=== PATIENT | female | born 1955 | race Caucasian/White ===

== ENCOUNTER 2016-03-29 17:55 | Inpatient (IN) | payer OTHER ==
[~2016-03-29] VITALS: Ht 162.6 cm; Wt 92.1 kg
--- NOTE | 2016-03-29 20:49 | DIAGNOSTIC IMAGING REPORT ---
PROCEDURE: CT SINUS/FACIAL BONES W/CONT CLINICAL INDICATION: Right auricular pain and swelling. Cellulitis. TECHNIQUE: of Isovue 300 injected intravenously and axial images were obtained through the face with coronal reformations. COMPARISON: None. FINDINGS: There is moderate to marked inflammatory changes and swelling of the right external ear and lateral external auditory canal. This is associated moderate right cervical adenopathy. There is no evidence of fluid collection or abscess. Right temporal bones and mastoids are normal (mildly under aerated). Right middle and inner ear appear normal. Sinuses appear normal. Portions of the orbits are seen, and are normal. There are moderate degenerative change of the cervical spine with fusion of the C5-6 level. IMPRESSION: 1. Moderate to marked inflammatory changes of the right external ear and lateral external auditory canal. Findings are compatible with cellulitis. No evidence of fluid collection or abscess, and no evidence of temporal bone involvement. 2. Associated moderate right upper cervical adenopathy. 3. Findings discussed with Dr. Mark Sneed. All CT scans at this facility use dose modulation, iterative reconstruction, and/or weight-based dosing when appropriate to reduce radiation dose to as low as reasonably achievable.
--- NOTE | 2016-03-29 21:01 | ED CLINICAL REPORT ---
Clinical Report - Physicians/Mid Levels [facility] [address] [place] [address] 03/29/2016 17:57 Patient: MARY TERRELL Arrived- By private vehicle. Historian- patient. HISTORY OF PRESENT ILLNESS Chief Complaint: SKIN RASH. This started denies several days and is still present and worsening. It was abrupt in onset and has been constant but is not gone now. It is described as painful. It has been located on the face (right Ear). No cause has been identified. No recent medication or food exposure. Was not recently exposed to poison krystal or poison oak. Similar symptoms previously: Once. Recent medical care: Not recently seen/assessed. REVIEW OF SYSTEMS No headache or abdominal pain. All systems otherwise negative, except as recorded above. PAST HISTORY See nurses notes. Tetanus immunization status is up-to-date. Medications: Hydrochlorothiazide Oral. Atenolol Oral. Allergies: No Known Drug Allergy. ADDITIONAL NOTES The nursing notes have been reviewed. PHYSICAL EXAM Vital Signs: 03/29/2016 18:28 BP: 165/62. HR: 87. RR: 16. O2 saturation: 98%. Temp: 101 F. Pain level now: 9/10. Hypertensive. Oxygen saturation normal. Appearance: Alert. Oriented X3. No acute distress. Eyes: Pupils equal, round and reactive to light. Conjunctivae and eyelids normal. ENT: Ears normal. Nose normal. Neck: Neck supple. CVS: Normal heart rate and rhythm. Heart sounds normal. Respiratory: No respiratory distress. Breath sounds normal. Abdomen: Nontender. No organomegaly. Skin: (cellulitic area over the rightexternal auricle and mastoid process that extends over to the cheek as well. Area is warm to touch. No crepitus. No masses. Moderate swelling associated to the external auricle. No signs of abscess. Skin is intact. Patient has proportionate tenderness over the areas of cellulitis.). Extremities: Normal external inspection. Extremities nontender. LABS, X-RAYS, AND EKG Laboratory Tests: CBC w Diff: (AYAD: 03/29/2016 19:12) ( MsgRcvd 03/29/2016 19:34) Final results Test Result Flag Units (Reference) WHITE BLOOD COUNT 12.7 H K/uL (4.5-11.5) RED BLOOD COUNT 4.60 M/uL (4.00-5.20) HEMOGLOBIN 12.2 gm/dL (12.0-16.0) HEMATOCRIT 37.6 % (36.0-46.0) MEAN CELL VOLUME 82 fL (80-100) MEAN CORPUSCULAR HGB 27 pg (26-34) MEAN CORPUSCULAR HGB CONC 33 g/dL (31-37) RED CELL DISTRIBUTION WIDTH 16.7 H % (11.6-14.8) PLATELET COUNT 194 K/uL (150-400) NEUTROPHIL % 80.0 H % (50-75) LYMPH % 11.1 L % (25-40) MONO % 8.7 % (3-14) EOSINOPHIL % 0 % (0-4) BASOPHIL % 0.2 % (0-2) Lactate, Serum: (AYAD: 03/29/2016 19:12) ( MsgRcvd 03/29/2016 19:54) Final results Test Result Flag Units (Reference) LACTIC ACID 1.3 mmol/L (0.4-2.0) . PROGRESS AND PROCEDURES Course of Care: The patient is a pleasant 60-year-old female presents for evaluation of cellulitis to the face. Patient is tender over the mastoid process. CT scan of the face will be ordered for evaluation of mastoids. Patient is afebrile here in the emergency department. Patient will need antibiotics however at this time we aredoing eating if the infection has gone down to the mastoids. Patient is nontoxic and is in no acute distress. Pain medication and laboratory studies also ordered for evaluation of patient's current condition. Patient is currently agreeable to the treatment plan. Was informed by nursing staff that patient did not want morphine for pain relief. Patient reports that she would rather have Tylenol or ibuprofen. Tylenol 650 was ordered. Workup is currently pending at this time. patient's CBC is back with a mild elevation in her white count. White count is 2.7. No other acute abnormalities noted. The rest of the patient's workup is currently pending. work up shows patient to have no infection going down to the bone on CT scan. Had discussion with patient about admission to the hospital. Patient is agreeable. Due to the area of cellulitis and cosmetic outcome, would have patient admitted for IV abx. Discussed case with hospitalist who will accept the patient. No further recommendations. Agreed with vanco and ceftriaxone. patient does not need ICU level of care at this time. no signs of sepsis. patient is non-toxic in appearance. Critical care performed (35 minutes). Time is exclusive of separately billable procedures. Time includes: direct patient care, patient reassessment, coordination of patient care, interpretation of data (laboratory data), review of patient's medical records, medical consultation and documentation of patient care. Disposition: Admitted to Acute Care. CLINICAL IMPRESSION acute right sided facial cellulitis, significant. (Electronically signed by Mark Sneed Dr. 04/01/2016 22:41)
--- NOTE | 2016-03-29 21:02 | ED ORDER SUMMARY ---
..... Patient: MARY TERRELL OrderSheet [facility] VisitID: [id number] [place] [address] 60y, F Registration Date/Time: 03/29/2016 ORDER SHEET Weight: 90.7 kg (stated) Allergies: No Known Drug Allergy GENERAL ORDERS: CT Sinus/Facial Bones w Cont Urgent (18:53 03/29/2016 Allen Sandhu) (Ack 19:07 NHouse ER Tech1) (Cancelled: Duplicate Order19:51 Allen Sandhu) CBC w Diff Urgent (18:53 03/29/2016 Allen Sandhu) (Ack 19:07 NHouse ER Tech1) (20:16 NHouse ER Tech1) CMP Urgent (18:53 03/29/2016 Allen Sandhu) (Ack 19:07 NHouse ER Tech1) (20:16 NHouse ER Tech1) Lactate, Serum Urgent (18:53 03/29/2016 Allen Sandhu) (Ack 19:07 NHouse ER Tech1) (20:16 NHouse ER Tech1) PCT (Procalcitonin) Urgent (18:53 03/29/2016 Allen Sandhu) (Ack 19:07 NHouse ER Tech1) (20:16 NHouse ER Tech1) Pulse oximeter (18:53 03/29/2016 Allen Sandhu) (18:56 MWinterer R.N.) CT IAC/PF/Orbit w Cont Urgent (19:50 03/29/2016 Allen Sandhu) (Ack 20:06 NHouse ER Tech1) (Cancelled: Wrong Order20:14 NHouse ER Tech1) CT Sinus/Facial Bones w Cont Urgent (20:13 03/29/2016 NHouse ER Tech1 verbal order read back to Allen Sandhu) (20:14 NHouse ER Tech1) Blood Culture (No) (N/A) Urgent (21:06 03/29/2016 DBeyer R.NKelvin verbal order read back to Allen Sandhu) (21:22 NHouse ER Tech1) MEDICATION ORDERS: Acetaminophen PO 650 mg (NOW) (19:29 03/29/2016 DBeyer R.N. verbal order read back to Allen Sandhu) (19:32 DBeycookie R.N.) Potassium Chloride PO 60 meq (NOW) (20:05 03/29/2016 Allen Sandhu) (20:25 DBdavid R.N.) IV FLUIDS: Morphine IV 4 mg (HIGH ALERT MEDICATION, NOW) (18:52 03/29/2016 Allen Sandhu) (Ack 18:55 MWinterer R.N.) IV Saline Lock (18:53 03/29/2016 Allen Sandhu) (Ack 18:55 MWinterer R.NKelvin) (19:19 DBeycookie R.N.) Vancomycin IV 1 gm/200mL (NOW) (21:01 03/29/2016 Allen Sandhu) (21:42 DBeyer R.N.) Ceftriaxone IV 1 gm/50mL (NOW) (21:01 03/29/2016 Allen Sandhu) (21:17 DBeyer R.N.) ORDER SHEET NOTES: [Electronically signed by Gene Leyva R.N. (22:33 03/29/2016)] [Electronically signed by Mark Sneed Dr. (22:41 04/01/2016)] [Electronically locked/signed by Gene Leyva R.N. (22:33 03/29/2016)]
--- NOTE | 2016-03-29 21:02 | ED NURSING NOTES ---
Clinical Report - Nurs[facility] [place] [address] 03/29/2016 17:57 Patient: MARY TERRELL TRIAGE Acuity: LEVEL 3. Chief Complaint: RIGHT EAR PAIN and REDNESS TO RIGHT EAR (swollen). Alert. No acute distress. SEPSIS SCREEN: Sepsis Screen. Negative (no infection suspected/documented). --18:32 Cecelia Lindsey R.N. 18:28 03/29/16. BP: 165/62. HR: 87. RR: 16. O2 saturation: 98% on room air. Temp: 101 F (oral). Pain level now: 12/06. --18:32 Cecelia Lindsey R.N. Weight: 90.7 kg stated. Height/Length: 64 inches Per Patient. BMI: 34.3. --18:31 Cecelia Lindsey R.N. Medications Atenolol Oral. --18:29 Cecelia Lindsey R.N. Hydrochlorothiazide Oral. --18:29 Cecelia Lindsey R.N. Medication/allergy information source: the patient. --18:32 Cecelia Lindsey R.N. Allergies No Known Drug Allergy. --18:29 Cecelia Lindsey R.N. History Arrived by private vehicle. Historian: patient. Accompanied by spouse. Primary physician (Lizette). This started yesterday. PAST MEDICAL HX: The patient is post-menopausal. SOCIAL HX: Never smoker. No alcohol use or drug use. FALL RISK ASSESSMENT: Fall risk assessment completed. No fall risk identified. NUTRITIONAL RISK ASSESSMENT: The nutritional risk assessment revealed no deficiencies. FUNCTIONAL ASSESSMENT: Functional assessment: no impairments noted. LEARNING NEEDS ASSESSMENT: The learning needs assessment revealed no barriers. SKIN INTEGRITY ASSESSMENT: Skin integrity risk assessment completed. No skin integrity risk identified. --18:32 Cecelia Lindsey R.N. PROBLEMS: Hypertension. --18:30 Cecelia Lindsey R.N. Assessment GENERAL / NEURO / PSYCH: Alert. Oriented X 4. Appears in no acute distress. Patient appears calm and cooperative. RESPIRATORY: Respirations not labored. CVS: Capillary refill less than 2 seconds. GI / : Abdomen soft and nontender. SKIN: Mucous membranes are pink. Skin is warm and dry. --18:32 Cecelia Lindsey R.N. Interventions ID band on patient. To treatment room. --18:32 Cecelia Lindsey R.N. NURSING PROGRESS NOTES 18:32 03/29/16. Two patient identifiers checked. Call light placed in reach. Side rails up x 1. Bed placed in lowest position. Brakes of bed on. Patient ready for evaluation- chart flagged and ED physician and SOLE ROUNDING MACHINE OPERATOR notified. --18:32 Cecelia Lindsey R.N. 19:05 03/29/16. Care transferred and report given (Gene, RN). --19:05 Cecelia Lindsey R.N. 19:14 03/29/2016 Morphine IV 4 mg (HIGH ALERT MEDICATION, NOW) was refused by patient because of Pt would rather not have morphine. Gene Leyva --19:19 Gene Leyva R.N. 19:19 03/29/2016 Site #1 started via IV in the left antecubital space with an 20g angiocath, with aseptic technique and good blood return; one attempt. Blood drawn: rainbow set and cultures x1. Saline lock flushed with saline. --19:19 Gene Leyva R.N. 19:32 03/29/2016 Acetaminophen (APAP) PO 650 mg given. Allergies verified and confirmed 5 rights. --19:32 Gene Leyva R.N. ( pt resting in bed call light within reach denies needs at this time.). --19:38 Gene Leyva R.N. Critical value relayed to ED by Ney. Critical value received by polina Larkin: 2.8. Critical value read back. Verified lab result and patient ID. ED physician notifed of critical value. --20:05 Polina Bhandari 20:25 03/29/2016 Potassium Chloride (Potassium Chloride ER) PO 60 meq given. Allergies verified and confirmed 5 rights. --20:25 Gene Leyva R.N. 21:03/29/16. BP: 135/60. HR: 78. RR: 18. O2 saturation: 98%. Temp: 97.4 F. --21:01 Gene Leyva R.N. 21:14 03/29/2016 Started 1 gm of Ceftriaxone IVPB in bag #1 50 mL; at 150 mL/hr over 20 minute(s) via site #1 via IV pump. Allergies verified and confirmed 5 rights. IV patency established. IV site checked: no pain, redness, or swelling. IV flushed thoroughly pre- and post-medication administration. --21:17 Gene Leyva R.N. 21:37 03/29/2016 Ceftriaxone IVPB Discontinued: bag #1 completed upon admission. Total amount infused: 50 mL. IV patency established. IV site checked: no pain, redness, or swelling. IV flushed thoroughly. --21:37 Gene Leyva R.N. 21:42 03/29/2016 Started 1 gm of Vancomycin IVPB in bag #1 250 mL; at 250 mL/hr over 1 hour(s) via site #1 via IV pump. Allergies verified and confirmed 5 rights. IV patency established. IV site checked: no pain, redness, or swelling. IV flushed thoroughly pre- and post-medication administration. --21:42 Gene Leyva R.N. DISPOSITION / DISCHARGE 21:30 03/29/16. Report was given to a nurse in person. Report included patient's care, treatment, medications, reviewed medication reconcilliation, and condition (including any recent changes or anticipated changes). All questions were answered. Report was acknowledged. (report to [facility]). --21:30 Gene Leyva R.N. 21:32 03/29/16. BP: 131/61. HR: 77. RR: 18. O2 saturation: 96%. Temp: 97.8 F. Pain level now 07/06. --21:32 Gene Leyva R.N. Locked/Released at 03/29/2016 22:33 by Gene Leyva R.N.
--- NOTE | 2016-03-29 21:02 | ED NURSING NOTES ---
Clinical Report - Nurses [facility] [place] [address] 03/29/2016 17:57 Patient: MARY TERRELL TRIAGE Acuity: LEVEL 3. Chief Complaint: RIGHT EAR PAIN and REDNESS TO RIGHT EAR (swollen). Alert. No acute distress. SEPSIS SCREEN: Sepsis Screen. Negative (no infection suspected/documented). --18:32 Cecelia Lindsey R.N. 18:28 03/29/16. BP: 165/62. HR: 87. RR: 16. O2 saturation: 98% on room air. Temp: 101 F (oral). Pain level now: 12/06. --18:32 Cecelia Lindsey R.N. Weight: 90.7 kg stated. Height/Length: 64 inches Per Patient. BMI: 34.3. --18:31 Cecelia Lindsey R.N. Medications Atenolol Oral. --18:29 Cecelia Lindsey R.N. Hydrochlorothiazide Oral. --18:29 Cecelia Lindsey R.N. Medication/allergy information source: the patient. --18:32 Cecelia Lindsey R.N. Allergies No Known Drug Allergy. --18:29 Cecelia Lindsey R.N. History Arrived by private vehicle. Historian: patient. Accompanied by spouse. Primary physician (Lizette). This started yesterday. PAST MEDICAL HX: The patient is post-menopausal. SOCIAL HX: Never smoker. No alcohol use or drug use. FALL RISK ASSESSMENT: Fall risk assessment completed. No fall risk identified. NUTRITIONAL RISK ASSESSMENT: The nutritional risk assessment revealed no deficiencies. FUNCTIONAL ASSESSMENT: Functional assessment: no impairments noted. LEARNING NEEDS ASSESSMENT: The learning needs assessment revealed no barriers. SKIN INTEGRITY ASSESSMENT: Skin integrity risk assessment completed. No skin integrity risk identified. --18:32 Cecelia Lindsey R.N. PROBLEMS: Hypertension. --18:30 Cecelia Lindsey R.N. Assessment GENERAL / NEURO / PSYCH: Alert. Oriented X 4. Appears in no acute distress. Patient appears calm and cooperative. RESPIRATORY: Respirations not labored. CVS: Capillary refill less than 2 seconds. GI / : Abdomen soft and nontender. SKIN: Mucous membranes are pink. Skin is warm and dry. --18:32 Cecelia Lindsey R.N. Interventions ID band on patient. To treatment room. --18:32 Cecelia Lindsey R.N. NURSING PROGRESS NOTES 18:32 03/29/16. Two patient identifiers checked. Call light placed in reach. Side rails up x 1. Bed placed in lowest position. Brakes of bed on. Patient ready for evaluation- chart flagged and ED physician and TIMBER MANAGEMENT TECHNICIAN notified. --18:32 Cecelia Lindsey R.N. 19:05 03/29/16. Care transferred and report given (Gene, RN). --19:05 Cecelia Lindsey R.N. 19:14 03/29/2016 Morphine IV 4 mg (HIGH ALERT MEDICATION, NOW) was refused by patient because of Pt would rather not have morphine. Gene Leyva --19:19 Gene Leyva R.N. 19:19 03/29/2016 Site #1 started via IV in the left antecubital space with an 20g angiocath, with aseptic technique and good blood return; one attempt. Blood drawn: rainbow set and cultures x1. Saline lock flushed with saline. --19:19 Gene Leyva R.N. 19:32 03/29/2016 Acetaminophen (APAP) PO 650 mg given. Allergies verified and confirmed 5 rights. --19:32 Gene Leyva R.N. ( pt resting in bed call light within reach denies needs at this time.). --19:38 Gene Leyva R.N. Critical value relayed to ED by Ney. Critical value received by polina Larkin: 2.8. Critical value read back. Verified lab result and patient ID. ED physician notifed of critical value. --20:05 Polina Bhandari 20:25 03/29/2016 Potassium Chloride (Potassium Chloride ER) PO 60 meq given. Allergies verified and confirmed 5 rights. --20:25 Gene Leyva R.N. 21:03/29/16. BP: 135/60. HR: 78. RR: 18. O2 saturation: 98%. Temp: 97.4 F. --21:01 Gene Leyva R.N. 21:14 03/29/2016 Started 1 gm of Ceftriaxone IVPB in bag #1 50 mL; at 150 mL/hr over 20 minute(s) via site #1 via IV pump. Allergies verified and confirmed 5 rights. IV patency established. IV site checked: no pain, redness, or swelling. IV flushed thoroughly pre- and post-medication administration. --21:17 Gene Leyva R.N. 21:37 03/29/2016 Ceftriaxone IVPB Discontinued: bag #1 completed upon admission. Total amount infused: 50 mL. IV patency established. IV site checked: no pain, redness, or swelling. IV flushed thoroughly. --21:37 Gene Leyva R.N. 21:42 03/29/2016 Started 1 gm of Vancomycin IVPB in bag #1 250 mL; at 250 mL/hr over 1 hour(s) via site #1 via IV pump. Allergies verified and confirmed 5 rights. IV patency established. IV site checked: no pain, redness, or swelling. IV flushed thoroughly pre- and post-medication administration. --21:42 Gene Leyva R.N. DISPOSITION / DISCHARGE 21:30 03/29/16. Report was given to a nurse in person. Report included patient's care, treatment, medications, reviewed medication reconcilliation, and condition (including any recent changes or anticipated changes). All questions were answered. Report was acknowledged. (report to [facility]). --21:30 Gene Leyva R.N. 21:32 03/29/16. BP: 131/61. HR: 77. RR: 18. O2 saturation: 96%. Temp: 97.8 F. Pain level now 07/06. --21:32 Gene Leyva R.N. Locked/Released at 03/29/2016 22:33 by Gene Leyva R.N.
--- NOTE | 2016-03-29 21:02 | ED ORDER SUMMARY ---
..... Patient: MARY TERRELL OrderSheet [facility] VisitID: [id number] [place] [address] 60y, F Registration Date/Time: 03/29/2016 ORDER SHEET Weight: 90.7 kg (stated) Allergies: No Known Drug Allergy GENERAL ORDERS: CT Sinus/Facial Bones w Cont Urgent (18:53 03/29/2016 Allen Sandhu) (Ack 19:07 NHouse ER Tech1) (Cancelled: Duplicate Order19:51 Allen Sandhu) CBC w Diff Urgent (18:53 03/29/2016 Allen Sandhu) (Ack 19:07 NHouse ER Tech1) (20:16 NHouse ER Tech1) CMP Urgent (18:53 03/29/2016 Allen Sandhu) (Ack 19:07 NHouse ER Tech1) (20:16 NHouse ER Tech1) Lactate, Serum Urgent (18:53 03/29/2016 Allen Sandhu) (Ack 19:07 NHouse ER Tech1) (20:16 NHouse ER Tech1) PCT (Procalcitonin) Urgent (18:53 03/29/2016 Allen Sandhu) (Ack 19:07 NHouse ER Tech1) (20:16 NHouse ER Tech1) Pulse oximeter (18:53 03/29/2016 Allen Sandhu) (18:56 MWinterer R.N.) CT IAC/PF/Orbit w Cont Urgent (19:50 03/29/2016 Allen Sandhu) (Ack 20:06 NHouse ER Tech1) (Cancelled: Wrong Order20:14 NHouse ER Tech1) CT Sinus/Facial Bones w Cont Urgent (20:13 03/29/2016 NHouse ER Tech1 verbal order read back to Allen Sandhu) (20:14 NHouse ER Tech1) Blood Culture (No) (N/A) Urgent (21:06 03/29/2016 DBeyer R.NKelvin verbal order read back to Allen Sandhu) (21:22 NHouse ER Tech1) MEDICATION ORDERS: Acetaminophen PO 650 mg (NOW) (19:29 03/29/2016 DBeyer R.N. verbal order read back to Allen Sandhu) (19:32 DBeycookie R.N.) Potassium Chloride PO 60 meq (NOW) (20:05 03/29/2016 Allen Sandhu) (20:25 DBdavid R.N.) IV FLUIDS: Morphine IV 4 mg (HIGH ALERT MEDICATION, NOW) (18:52 03/29/2016 Allen Sandhu) (Ack 18:55 MWinterer R.N.) IV Saline Lock (18:53 03/29/2016 Allen Sandhu) (Ack 18:55 MWinterer R.NKelvin) (19:19 DBeycookie R.N.) Vancomycin IV 1 gm/200mL (NOW) (21:01 03/29/2016 Allen Sandhu) (21:42 DBeyer R.N.) Ceftriaxone IV 1 gm/50mL (NOW) (21:01 03/29/2016 Allen Sandhu) (21:17 DBeyer R.N.) ORDER SHEET NOTES: [Electronically signed by Gene Leyva R.N. (22:33 03/29/2016)] [Electronically signed by Mark Sneed Dr. (22:41 04/01/2016)] [Electronically locked/signed by Gene Leyva R.N. (22:33 03/29/2016)]
--- NOTE | 2016-03-29 21:24 | History & Physical Report ---
Admission Admit Date 03/29/16 History Chief Complaint Right Ear Pain and Swelling History of Present Illness Patient is a 60 year old female with a past medical history of Essential Hypertension. She presents to the ER at [facility] complaining of a 1 day hx of right ear pain and swelling. Pt states she noticed yesterday her right ear was very warm and painful to touch. It became significantly swollen. She reports the erythema then seemed to start spreading onto her right cheek. She complains of associated fever and chills. Pt denies any headache, nausea, vomiting, visual changes, or pain with eye movement. She states she has had facial cellulitis once before. Pt has no other complaints or concerns at this time. Patient History 1. Essential hypertension Social History Pt denies any hx of tobacco, alcohol, and illicit drug use. Family History Family history was reviewed; no changes noted. Medications and Allergies Medications Current Medications Sig/Amy Start time Last Medication Dose Route Stop Time Status Admin Ceftriaxone Sodium/ 50 ML DAILY 03/30 0900 UNV Dextrose IV Acetaminophen 650 MG Q6H PRN 03/29 2114 UNV PO Docusate Sodium 250 MG BID PRN 03/29 2114 UNV PO Morphine Sulfate See Dose Q4H PRN 03/29 2114 UNi Insts (1) IV Morphine Sulfate 1 MG Q6H PRN 03/29 2114 UNV IV Naloxone HCl 0.4 MG PRN PRN 03/29 2114 UNV IV Ondansetron HCl 4 MG Q8H PRN 03/29 2114 UNV IV Ondansetron HCl 4 MG Q6H PRN 03/29 2114 UNV IV Vancomycin HCl/ 200 ML .[PER PHARMACY] 03/29 2114 UNV Dextrose IV Zolpidem Tartrate 5 MG QHS PRN 03/29 2114 UNV PO Dose Instructions: (1)Morphine Sulfate: 2 - 4 MG Home Medications: 1. Atenolol, dose unknown 2. Hydrochlorothiazide, dose unknown Allergies Coded Allergies: No Known Drug Allergy (11/11/01) Uncoded Allergies: Food Allergies: NKA Med Allergies: NKA Review of Systems Other All systems reviewed and are negative except for what has already been mentioned in the HPI. Physical Exam Vital Signs / I&Os Temp: 101.3 F HR: 90 BP: 136/52 RR: 18 SpO2: 97% on room air Other GENERAL: NAD; Pt laying comfortably in bed HEENT: AT/NC; PERRLA, EOMI; MM Moist NECK: Supple; No cervical LAD appreciated CARDIAC: RRR, No M/R/G appreciated PULM: Clear to auscultation bilaterally ABD: Soft, NT, ND, Positive BS in all quadrants; No hepatosplenomegaly appreciated EXT: No C/C/E in bilateral upper and lower extremity; No calve tenderness bilaterally SKIN: Pt has erythema and swelling of the right auricle and spreading over the right side of her face, there is tenderness to palpation with overlying calor present NEURO: Alert and oriented x3; Following all commands PSYCH: Normal mood and affect LAB Results Laboratory Tests 03/29 Chemistry Plasma Sodium (136 - 145 mmol/L) 132 Plasma Potassium (3.5 - 5.1 mmol/L) 2.8 Plasma Chloride (98 - 107 mmol/L) 96 CO2 (Enzymatic) (21 - 32 mmol/L) 29 BUN (7 - 18 mg/dL) 11 Creatinine (0.6 - 1.3 mg/dL) 0.8 Est GFR ( Amer) (mL/min) >60 Est GFR (Non-Af Amer) (mL/min) >60 Glucose (70 - 110 mg/dL) 104 Lactic Acid (0.4 - 2.0 mmol/L) 1.3 Plasma Calcium (8.5 - 10.1 mg/dL) 9.0 Plasma Magnesium (1.8 - 2.4 mg/dL) 1.4 Total Bilirubin (0.0 - 1.0 mg/dL) 0.5 AST (15 - 37 U/L) 17 ALT (12 - 78 U/L) 28 Alkaline Phosphatase (46 - 116 U/L) 66 Total Protein (6.4 - 8.2 g/dL) 7.9 Albumin (3.3 - 5.0 g/dL) 3.6 Procalcitonin (0 - 0.5 ng/mL) <0.5 Hematology WBC (4.5 - 11.5 K/uL) 12.7 RBC (4.00 - 5.20 M/uL) 4.60 Hgb (12.0 - 16.0 gm/dL) 12.2 Hct (36.0 - 46.0 %) 37.6 MCV (80 - 100 fL) 82 MCH (26 - 34 pg) 27 RDW (11.6 - 14.8 %) 16.7 Neut % (Auto) (50 - 75 %) 80.0 Lymph % (Auto) (25 - 40 %) 11.1 [place] % (Auto) (3 - 14 %) 8.7 Eos % (Auto) (0 - 4 %) 0 Baso % (Auto) (0 - 2 %) 0.2 Plt Count, EDTA (150 - 400 K/uL) 194 PUBS MCHC (31 - 37 g/dL) 33 Microbiology Date/Time Procedure - Status Source Growth 03/29 2105 Blood Culture - ORD BLOOD 03/29 UNK MRSA Screen - ORD NASAL Imaging CT SINUS/FACIAL BONES W/CONT CLINICAL INDICATION: Right auricular pain and swelling. Cellulitis. TECHNIQUE: of Isovue 300 injected intravenously and axial images were obtained through the face with coronal reformations. COMPARISON: None. FINDINGS: There is moderate to marked inflammatory changes and swelling of the right external ear and lateral external auditory canal. This is associated moderate right cervical adenopathy. There is no evidence of fluid collection or abscess. Right temporal bones and mastoids are normal (mildly under aerated). Right middle and inner ear appear normal. Sinuses appear normal. Portions of the orbits are seen, and are normal. There are moderate degenerative change of the cervical spine with fusion of the C5-6 level. IMPRESSION: 1. Moderate to marked inflammatory changes of the right external ear and lateral external auditory canal. Findings are compatible with cellulitis. No evidence of fluid collection or abscess, and no evidence of temporal bone involvement. 2. Associated moderate right upper cervical adenopathy. 3. Findings discussed with Dr. Mark Sneed. Assessment and Plan Problem List 1. Facial cellulitis Plan - Admit as inpatient to Acute Care, as pts length of stay is expected to be greater than 2 midnights - Start IV Vancomycin, Pharmacy to dose - Start IV Rocephin 2 grams daily - Blood culture now - MRSA screen - Check Procalcitonin and CRP now - Repeat CBC with diff in AM - PO Acetaminophen PRN for fever - IV Morphine PRN for pain 2. Hypokalemia Plan - KCl given in ER - Repeat BMP in AM, if pt remains hypokalemic then would replace with IV KCl again - Telemetry monitoring - Her hypokalemia is likely related to her HCTZ 3. Essential hypertension Plan - Well controlled - Resume home Atenolol - Hold HCTZ for now given hypokalemia
[2016-03-29 21:51] VITALS: BP 130/62
[2016-03-29] MEDS ORDERED: HYDROCHLOROTHIA25 MG PO (22:15)
[2016-03-29] MEDS ORDERED: ATENOLOL25 MG PO (22:15)
[2016-03-30 02:02] VITALS: BP 113/41
[2016-03-30 07:14] VITALS: BP 128/48
[2016-03-30 11:03] VITALS: BP 131/60
--- NOTE | 2016-03-30 12:31 | Progress Note ---
Subjective General Taking po well. No chest pain, SOB, cough, nausea, vomitting, diarrhea, constipation or abdominal pain. Per patient, swelling and redness unchanged. Physical Exam Vital Signs / I&Os Vital Signs Date Time Temp Pulse Resp B/P Pulse O2 O2 Flow FiO2 Ox Delivery Rate 03/30 1103 36.7 78 16 131/60 97 Room Air 03/30 0714 37.3 84 16 128/48 98 Room Air 03/30 0202 36.5 73 20 113/41 97 Room Air 03/29 2220 Room Air 03/29 2151 36.6 76 16 130/62 97 Room Air I&O 03/30 0000 03/29 1600 03/29 0800 Intake Total Output Total Balance General Appearance Alert, Oriented X3, Cooperative, No acute distress Lungs Clear to auscultation, Normal air movement Cardiovascular Regular rate and rhythm, Normal S1 and S2, No murmurs, gallops, rubs Abdomen Normal bowel sounds, Soft, No tenderness Extremities No edema Skin Erythema and edema around R ear is unchanged. Assessment and Plan Problem List 1. Facial cellulitis Plan Severe. will continue IV abx x 24-48 hrs more. Will likely plan to discharge home on bactrim. 2. Hypokalemia Plan Replaced. 3. Hypomagnesemia Plan Replacing. Recheck in am. 4. Prediabetes Plan On consistent carb diet. HgbA1C 6.0 02/2016 5. Dyslipidemia Plan Restarted statin today. 6. Essential hypertension Plan Bp's are nl. Will monitor.
[2016-03-30 14:59] VITALS: BP 126/60
[2016-03-30 18:42] VITALS: BP 127/57
[2016-03-30 22:42] VITALS: BP 132/65
[2016-03-31 02:17] VITALS: BP 122/65
[2016-03-31 07:18] VITALS: BP 136/58
[2016-03-31 11:07] VITALS: BP 123/64
[2016-03-31 14:54] VITALS: BP 129/58
[2016-03-31 18:52] VITALS: BP 133/62
[2016-03-31 22:29] VITALS: BP 124/54
[2016-04-01 00:27] VITALS: BP 132/76
--- NOTE | 2016-04-01 00:47 | Progress Note ---
Subjective General Patient feeling mildly improved today. No nausea, vomitting, diarrhea, constipation, abdominal pain, chest pain, SOB, or cough. Physical Exam Vital Signs / I&Os Vital Signs Date Time Temp Pulse Resp B/P Pulse O2 O2 Flow FiO2 Ox Delivery Rate 04/01 0027 36.9 76 18 132/76 99 Room Air 0.0 03/31 2229 36.9 74 16 124/54 98 Room Air 0.0 03/31 1852 36.9 82 22 133/62 98 Room Air 03/31 1454 36.5 65 16 129/58 100 Room Air 03/31 1107 36.9 95 18 123/64 95 Room Air 0.0 03/31 0745 Room Air 03/31 0718 36.7 68 18 136/58 98 Room Air 0.0 03/31 0217 36.7 64 16 122/65 100 Room Air I&O 04/01 0000 03/31 1600 03/31 0800 Intake Total 1164 800 240 Output Total 350 900 Balance 814 -100 240 General Appearance Alert, No acute distress, Mild distress Lungs Clear to auscultation, Normal air movement Cardiovascular Regular rate and rhythm, Normal S1 and S2, No murmurs, gallops, rubs Abdomen Normal bowel sounds, Soft Extremities No edema Skin Erythema mildly impmroved. Edema mildly improved. Assessment and Plan Problem List 1. Facial cellulitis Plan Possibly improved on vanco and rocephin. If improved tomorrow, will likely discharge to home on bactrim and keflex with close f/u in office.
[2016-04-01 07:06] VITALS: BP 119/66
[2016-04-01 10:24] VITALS: BP 137/81
[2016-04-01] MEDS ORDERED: ATORVASTATIN CA20 MG PO (11:58)
[2016-04-01] MEDS ORDERED: BACTRIM DS1 TAB PO (11:59)
[2016-04-01] MEDS ORDERED: CEPHALEXIN500 MG PO (12:00)
--- NOTE | 2016-04-01 12:01 | Provider's Discharge Care Plan ---
Problem, Goal, Plan Problem List 1. Facial cellulitis Goals: Improved health/wellness Instructions: Follow up as directed, Take meds as directed
--- NOTE | 2016-04-01 12:01 | Provider's Discharge Care Plan ---
Problem, Goal, Plan Problem List 1. Facial cellulitis Goals: Improved health/wellness Instructions: Follow up as directed, Take meds as directed
--- NOTE | 2016-04-01 22:41 | ED MAR SUMMARY ---
..... Medication Administration Record [facility] [address] [place] [address] Patient: MARY TERRELL Visit ID: [id number] 60y, F Weight: 90.7 kg Height/Length: 64 in BMI: 34.3 ALLERGIES: No Known Drug Allergy Given 19:32 03/29/2016 Gene Leyva R.N. Medication Administered: ACETAMINOPHEN [PO] (APAP), Dose: 650 mg PO. Medication Ordered: Acetaminophen PO 650 mg (NOW). Given 20:25 03/29/2016 Gene Leyva R.N. Medication Administered: POTASSIUM CHLORIDE [PO] (POTASSIUM CHLORIDE ER), Dose: 60 meq PO. Medication Ordered: Potassium Chloride PO 60 meq (NOW). Start 21:14 03/29/2016 Gene Leyva R.N., Stop 21:37 03/29/2016 Gene Leyva R.N. Medication Administered: CEFTRIAXONE [IVPB], Dose: 1 gm IVPB over 20 minute(s), Rate: 150 mL/hr, Dispensed: 50 mL bag, Site: #1 left AC. Medication Ordered: Ceftriaxone IV 1 gm/50mL (NOW). Start 21:42 03/29/2016 Gene Leyva R.N. Medication Administered: VANCOMYCIN [IVPB], Dose: 1 gm IVPB over 1 hour(s), Rate: 250 mL/hr, Dispensed: 250 mL bag, Site: #1 left AC. Medication Ordered: Vancomycin IV 1 gm/200mL (NOW).
--- NOTE | 2016-04-01 22:41 | ED DISCHARGE INSTRUCTIONS ---
Patient: MARY TERRELL General Instructions [facility] VisitID: [id number] [address] [place] [address] 60y, F Registration Date/Time: 03/29/2016 acute right sided facial cellulitis, significant. (Electronically signed by Mark Sneed Dr. 04/01/2016 22:41)
--- NOTE | 2016-04-01 22:41 | ED MAR SUMMARY ---
..... Medication Administration Record [facility] [address] [place] [address] Patient: MARY TERRELL Visit ID: [id number] 60y, F Weight: 90.7 kg Height/Length: 64 in BMI: 34.3 ALLERGIES: No Known Drug Allergy Given 19:32 03/29/2016 Gene Leyva R.N. Medication Administered: ACETAMINOPHEN [PO] (APAP), Dose: 650 mg PO. Medication Ordered: Acetaminophen PO 650 mg (NOW). Given 20:25 03/29/2016 Gene Leyva R.N. Medication Administered: POTASSIUM CHLORIDE [PO] (POTASSIUM CHLORIDE ER), Dose: 60 meq PO. Medication Ordered: Potassium Chloride PO 60 meq (NOW). Start 21:14 03/29/2016 Gene Leyva R.N., Stop 21:37 03/29/2016 Gene Leyva R.N. Medication Administered: CEFTRIAXONE [IVPB], Dose: 1 gm IVPB over 20 minute(s), Rate: 150 mL/hr, Dispensed: 50 mL bag, Site: #1 left AC. Medication Ordered: Ceftriaxone IV 1 gm/50mL (NOW). Start 21:42 03/29/2016 Gene Leyva R.N. Medication Administered: VANCOMYCIN [IVPB], Dose: 1 gm IVPB over 1 hour(s), Rate: 250 mL/hr, Dispensed: 250 mL bag, Site: #1 left AC. Medication Ordered: Vancomycin IV 1 gm/200mL (NOW).
--- NOTE | 2016-04-01 22:41 | ED MED RECONCILIATION SUMMARY ---
Patient: MARY TERRELL Medication Reconciliation Report [facility] VisitID: [id number] [address] [place] [address] 60y, F Registration Date/Time: 03/29/2016 Weight: 90.7 kg Height/Length: 64 in. BMI: 34.3 ALLERGIES: No Known Drug Allergy The patient's Home Medications are listed below: THE FOLLOWING MEDICATIONS NEED TO BE RECONCILED: Atenolol Oral Hydrochlorothiazide Oral The source(s) of the original Home Medication information: patient The following Medications were given to the patient in the Emergency Department: Acetaminophen [PO] PO 650 mg, administered: 03/29/2016 7:32:00 PM Potassium Chloride [PO] PO 60 meq, administered: 03/29/2016 8:25:00 PM Ceftriaxone [IVPB] IVPB bolus 0, then 1 gm 150 mL/hr, administered: 03/29/2016 9:14:00 PM Vancomycin [IVPB] IVPB bolus 0, then 1 gm 250 mL/hr, administered: 03/29/2016 9:42:00 PM The following Medications were prescribed to the patient: None.
--- NOTE | 2016-04-01 22:41 | ED DISCHARGE INSTRUCTIONS ---
Patient: MARY TERRELL General Instructions [facility] VisitID: [id number] [address] [place] [address] 60y, F Registration Date/Time: 03/29/2016 acute right sided facial cellulitis, significant. (Electronically signed by Mark Sneed Dr. 04/01/2016 22:41)
--- NOTE | 2016-04-01 22:41 | ED MED RECONCILIATION SUMMARY ---
Patient: MARY TERRELL Medication Reconciliation Report [facility] VisitID: [id number] [address] [place] [address] 60y, F Registration Date/Time: 03/29/2016 Weight: 90.7 kg Height/Length: 64 in. BMI: 34.3 ALLERGIES: No Known Drug Allergy The patient's Home Medications are listed below: THE FOLLOWING MEDICATIONS NEED TO BE RECONCILED: Atenolol Oral Hydrochlorothiazide Oral The source(s) of the original Home Medication information: patient The following Medications were given to the patient in the Emergency Department: Acetaminophen [PO] PO 650 mg, administered: 03/29/2016 7:32:00 PM Potassium Chloride [PO] PO 60 meq, administered: 03/29/2016 8:25:00 PM Ceftriaxone [IVPB] IVPB bolus 0, then 1 gm 150 mL/hr, administered: 03/29/2016 9:14:00 PM Vancomycin [IVPB] IVPB bolus 0, then 1 gm 250 mL/hr, administered: 03/29/2016 9:42:00 PM The following Medications were prescribed to the patient: None.
--- NOTE | 2016-04-02 02:54 | DISCHARGE SUMMARY ---
ADMIT DATE: 03/29/2016 DISCHARGE DATE: 04/01/2016 ADMITTING DIAGNOSES: 1. Facial cellulitis 2. Hypokalemia 3. Essential hypertension DISCHARGE DIAGNOSES: 1. Facial cellulitis, improving on vancomycin and Rocephin 2. Hypokalemia, replaced 3. Hypomagnesemia, replaced 4. Essential hypertension, resolved and off all medications 5. Prediabetes. 6. Dyslipidemia. BRIEF HISTORY: This is a 60-year-old female who over the weekend started having symptoms of right ear redness and swelling. She did have a case of this over a year ago, however, has been asymptomatic since that time. She denies any issues prior to noticing the edema and swelling. HOSPITAL COURSE: She was admitted to the hospital and started on vancomycin and Rocephin immediately. Over the ensuing days, the ear redness and edema have moderately improved. The patient's blood pressure was low normal on admission and therefore we held all of her antihypertensive medications. Her blood pressure has remained normal during her entire hospital stay. The patient's hypomagnesia and hypokalemia has been replaced during her hospitalization. PHYSICAL EXAMINATION: VITAL SIGNS: Stable. GENERAL: This is a well-appearing female, lying in bed, in no apparent distress. HEENT: Head is atraumatic, normocephalic. Trachea is midline. The right ear and face cellulitis has decreased edema and decreased erythema. HEART: S1, S2, regular rate and rhythm. No S3, S4, murmurs, gallops, or rubs. LUNGS: Clear to auscultation bilaterally. ABDOMEN: Soft, nontender, nondistended, without hepatosplenomegaly or masses. Bowel sounds are active. EXTREMITIES: There is no peripheral edema. DISCHARGE INSTRUCTIONS/MEDICATIONS: The patient was discharged home with instructions to follow up with me on Wednesday. She was instructed to call me immediately for significant worsening of the redness or swelling. Diet: Consistent carb diet. Activity: Up ad marisol. Medications: Atorvastatin 20 mg p.o. daily, Bactrim double strength 1 tab p.o. b.i.d., Keflex 500 mg p.o. q.i.d.
== END 2016-04-01 12:46 | disposition home or self-care (01) | DRG 155 ==
LOC: ED SRH 17:55 → TRANS SRH 21:06 → CC SRH 21:43 → ACUTE3 SRH 03-31 23:45
PROVIDERS: ADMIT Student in an Organized Health Care Education/Training Program
DX: H60.11 Cellulitis of right external ear (principal); L03.211 Cellulitis of face; E87.6 Hypokalemia; E83.42 Hypomagnesemia; R73.03 Prediabetes; E78.5 Hyperlipidemia, unspecified
CPT/HCPCS: 90047; 90065; 90074; 90100; 91583; 91585; 91672; 92031; 92132; 92720; 93004; 95059

== ENCOUNTER 2016-09-01 12:57 | Outpatient (CLI) | payer OTHER ==
[~2016-09-01 12:57] MED LIST: ATENOLOL25 MG PO; ATORVASTATIN CA20 MG PO; BACTRIM DS1 TAB PO; CEPHALEXIN500 MG PO; HYDROCHLOROTHIA25 MG PO
--- NOTE | 2016-09-01 14:04 | DIAGNOSTIC IMAGING REPORT ---
PROCEDURE: XR KNEE 3 VIEWS BILATERAL INDICATION: KNEE PAIN TECHNIQUE: Three views of each knee. COMPARISON: None. FINDINGS: RIGHT KNEE: Patellofemoral osteoarthritis with severe narrowing of the lateral compartment. LEFT KNEE: Patellofemoral osteoarthritis with severe narrowing of the lateral compartment. IMPRESSION: 1. Bilateral patellofemoral osteoarthritis with spur formation and lateral compartment narrowing.
== END 2016-09-01 23:00 ==
LOC: XR SRH 12:57
DX: M17.0 Bilateral primary osteoarthritis of knee (principal)

== ENCOUNTER 2016-10-09 10:04 | Outpatient (CLI) | payer OTHER ==
--- NOTE | 2016-10-09 11:22 | DIAGNOSTIC IMAGING REPORT ---
PROCEDURE: DEXA BONE DENSITY STUDY CLINICAL INDICATION: SCREENING COMPARISON: None. FINDINGS: LUMBAR SPINE: Bone mineral density 0.995 g/cm2, T score -0.5 normal LEFT HIP: Bone mineral density 0.903 g/cm2, T score -0.3 normal LEFT FEMORAL NECK: Bone mineral density 0.772 g/cm2, T score -0.7 normal FRACTURE RISK CALCULATION ( when applicable): 10-year fracture risk of a major osteoporotic fracture and of a hip fracture not reported because all T-scores at or above -1.0 (T score greater or equal to -1.0 to: NORMAL) (T score from -1.1 to -2.4: OSTEOPENIA) (T score ess than or equal to -2.5: OSTEOPOROSIS) IMPRESSION: 1. Normal spine hip and femoral neck
--- NOTE | 2016-10-09 12:23 | DIAGNOSTIC IMAGING REPORT ---
PROCEDURE: MG BILATERAL SCREENING W/CAD INDICATION: Screening, remote family history of breast cancer TECHNIQUE: Standard CC and MLO views bilaterally. Computer aided detection was used. COMPARISON: 01/24/2014, 02/21/2008 FINDINGS: Heterogeneous, nodular fibroglandular tissue is present bilaterally. A few bilateral areas of dystrophic microcalcifications. There is an 8 mm region in the central posterior left breast of a vaguely linear grouping of new microcalcifications measuring about 8 mm in length. A small nodular density in the inferior right breast seen only in the MLO view measures about 4 mm and demonstrates a few associated microcalcifications. No new areas of architectural distortion. IMPRESSION: 1. There is a new grouping of indeterminate microcalcifications in the central left breast for which further evaluation with magnification views is recommended. 2. A small nodular density in the inferior right breast has developed. Further evaluation with spot compression and ultrasound is recommended. 3. The patient will be contacted. RESULT CODE: 0- Incomplete; needs additional evaluation. A. A negative report should not delay biopsy if a dominant or clinically suspicious mass is present. 10-15% of cancers are not identified by x-ray. B. A negative report may reinforce clinical impression. C. Adenosis and dense breasts may obscure an underlying neoplasm. D. False positive reports average 6-10%. E.. A yearly screening mammogram is recommended. A reminder letter will be scheduled.
== END 2016-10-09 23:00 ==
LOC: MAM SRH 10:04
DX: Z12.31 Encounter for screening mammogram for malignant neoplasm of breast (principal); Z13.820 Encounter for screening for osteoporosis

== ENCOUNTER 2016-10-14 14:23 | Outpatient (CLI) | payer OTHER ==
--- NOTE | 2016-10-14 16:24 | DIAGNOSTIC IMAGING REPORT ---
PROCEDURE: MG BILATERAL DIAGNOSTIC W/CAD INDICATION: Follow-up right breast nodule and left breast calcifications. TECHNIQUE: A diagnostic mammogram was originally imaged on 10/13/2016, but the study was incomplete due to technical factors. See mammogram report on 10/13/2016 in regards to the acquire mammogram images at that time. The patient now returns for completion of bilateral diagnostic mammogram. The following images were obtained: Left breast technique: Exaggerated CC left breast. Magnification CC, magnification exaggerated CC, and magnification lateral views of the central left breast. Right breast technique: MLO view of the right breast with spot compression MLO view of the caudal right breast. COMPARISON: Comparison is made to mammogram and right breast ultrasound (10/13/2016), and screening mammogram studies (10/09/2016, 01/24/2014, and 02/20. FINDINGS: Left mammogram: Computer-aided detection applied. Moderately dense and nodular parenchymal pattern (compatible with multiple cysts). There are multiple dystrophic micro and macrocalcifications in the central left breast which appear unchanged since 01/24/2014 Right mammogram: Moderately dense and nodular parenchymal pattern (consistent with multiple cysts). There are dystrophic and microcalcifications in the central left breast (no change). No evidence of breast nodule in the lower right breast. IMPRESSION: 1. Negative mammogram with bilateral chronic dystrophic and microcalcifications, and multiple cysts. No evidence of suspicious calcification and no evidence of right breast mass. 2. Resume routine screening schedule (September 2017). 3. Findings discussed with the patient. RESULT CODE: 2- Benign finding(s). A. A negative report should not delay biopsy if a dominant or clinically suspicious mass is present. 10-15% of cancers are not identified by x-ray. B. A negative report may reinforce clinical impression. C. Adenosis and dense breasts may obscure an underlying neoplasm. D. False positive reports average 6-10%. E.. A yearly screening mammogram is recommended. A reminder letter will be scheduled.
== END 2016-10-14 23:00 ==
LOC: MAM SRH 14:23
DX: N63 Unspecified lump in breast (principal); R92.0 Mammographic microcalcification found on diagnostic imaging of breast